=== PATIENT | male | born 1995 | race Caucasian/White ===

== ENCOUNTER 2017-07-04 17:02 | Emergency (ER) | payer OTHER ==
[~2017-07-04] VITALS: Ht 182.9 cm; Wt 161.9 kg
[2017-07-04 17:04] VITALS: TEMP 37; Ht 182.9 cm; Wt 161.9 kg
[2017-07-04] MEDS ORDERED: ONDANSETRON INJ 2 MG/ML 2 ML VIAL IV STA (17:36)
[2017-07-04] MEDS ORDERED: SODIUM CHLORIDE 0.9% 1000ML 1,000 ML IV STA (17:36)
--- NOTE | 2017-07-04 17:46 | EMERGENCY ROOM VISIT NOTE ---
History Report prepared by Hilary: Larry Moss Under the Supervision of: Dr. Bassam Spaulding M.D. First contact with patient: 17:09 Chief Complaint: GI ASSESSMENT Stated Complaint: VOMITING, DIARRHEA, FEVER, SORE THROAT, ABDOMINAL Nursing Triage Summary: Pt presents accompanied by mom. Pt states vomiting, diarrhea and upper abd pain x 4 days. Pt states on Clozaril, mom states, "He almost from being on that about 4 yrs ago because he had no immune system." History of Present Illness The patient is a 21 year old male who presents to the Emergency Room with complaints of on and off upper abdominal pain for the past four days. He currently rates his discomfort as a 3/10 in severity. Additionally, the patient has been having nausea, vomiting, diarrhea, fever of 100-101, sore throat, neck pain, and back pain. The patient is currently on Clozaril for the past 8 years, and at one point the patients immune system was too far down, and he almost . The mother has been sick recently, and she wants his levels checked. The patient additionally is complaining of weakness, photophobia, and phonophobia. The patient denies any hematochezia, urinary symptoms, swelling or bruising of the extremities, shortness of breath, cough, chest pain, headache, and testicular pain. The patient has a history of schizophrenia, tachycardia, high functioning autism, PTSD, Bipolar disorder, and he is diabetic. The patient denies any recent antibiotics, and he has had a fever today. Source of History: patient, parent Onset: four days ago Position: abdomen (upper) Symptom Intensity: 3/10 Timing: other (on and off) Associated Symptoms: + fevers, + sorethroat, + neck pain, + nausea, + vomiting, + abdominal pain, + back pain, + diarrhea, + weakness, No headache, No cough, No chest pain, No SOB, No hematochezia, No urinary symptoms Review of Systems See HPI for pertinent positives & negatives. A total of 10 systems reviewed and were otherwise negative. Past Medical & Surgical Medical Problems: (1) Bipolar disorder (2) Diabetes (3) High-functioning autism spectrum disorder (4) PTSD (post-traumatic stress disorder) (5) Schizophrenia (6) Tachycardia Old medical records were reviewed. Nurse's notes were reviewed and I agree with. Social History Smoking Status: Never Smoker Marital Status: single Housing Status: lives with family Occupation Status: student Current/Historical Medications Scheduled Ascorbic Acid (Vitamin C), 500 MG PO BID Atenolol (Tenormin), 25 MG PO DAILY Clozapine (Clozaril), 100 MG PO DAILY Fenofibrate (Tricor), 160 MG PO DAILY Fluoxetine (Prozac), 20 MG PO DAILY Lisinopril (Zestril), 2.5 MG PO DAILY Metformin Hcl (Glucophage), 500 MG PO BID Multiple Vitamins W/ Minerals (Centrum), 1 TAB PO DAILY Pantoprazole (Protonix), 40 MG PO DAILY Probiotic Product (Probiotic), 1 TAB PO DAILY Simvastatin (Zocor), 40 MG PO QPM Zinc Gluconate (Zinc), 50 MG PO DAILY Scheduled PRN Alprazolam (Xanax), 0.5 MG PO BID PRN for Anxiety Zolpidem Tartrate (Ambien), 10 MG PO HS PRN for Sleep Physical Exam Vital Signs Date Time Temp Pulse Resp B/P (MAP) Pulse Ox O2 Delivery O2 Flow Rate FiO2 07/04/17 20:06 84 20 135/85 96 Room Air 07/04/17 19:10 93 16 128/74 95 Room Air 07/04/17 17:04 37.0 111 18 150/67 94 Room Air Physical Exam General: Non-ill appearing young male in no acute distress. HEENT: Normal cephalic atraumatic. Tympanic membranes are normal. Pupils are equal round and reactive to light. Extraocular movements are intact. Oropharynx is pink with moist mucous membranes. Tonsil and uvula have been surgically removed. No swelling of the mouth lips or tongue. Neck: Supple with a midline trachea. No meningeal signs or stiffness, no JVD or bruits. Negative Kernig and Brudzinski. No Stridor. Chest: Clear to auscultation bilaterally. No wheezes or rhonchi. No increased work of breathing. Heart: regular rate and rhythm. Abdomen: Soft nontender, nondistended without rebound guarding or rigidity. Extremities: No cyanosis clubbing or edema. No calf tenderness or assymetry Spine/Back. Non tender to palpation. No CVA tenderness Skin: Good turgor without rashes. Neurologic exam: Cranial nerves two through 12 are intact. Motor and sensation are intact and symmetrical throughout. Psych: Normal thought process and affect Medical Decision & Procedures ER Provider Diagnostic Interpretation: Radiology results as stated below per my review and radiologist interpretation: CHEST ONE VIEW PORTABLE CLINICAL HISTORY: Atypical chest pain COMPARISON STUDY: No previous studies for comparison. FINDINGS: The cardiac and mediastinal contours are normal. There is no evidence of focal pulmonary consolidation. There is no evidence of failure. No pleural effusions are visualized.[ There is a small device projected over the left chest, likely representing an event recorder. IMPRESSION: No active disease in the chest. Electronically signed by: Yovani Morales M.D. 07/04/2017 5:54 PM Dictated Date/Time: 07/04/2017 5:52 PM ABD/PELVIS IV CONTRAST ONLY CT DOSE: 1975.92 mGy.cm HISTORY: Pain eval for infection/colitis TECHNIQUE: Multiaxial CT images of the abdomen and pelvis were performed following the use of intravenous contrast. A dose lowering technique was utilized adhering to the principles of ALARA. COMPARISON STUDY: None. FINDINGS: Lung bases are clear. Fatty infiltration of liver. The kidneys enhance uniformly. 3 mm nonobstructing calcification lower pole left kidney. Nonobstructive bowel pattern. Negative visualized components of the appendix. IMPRESSION: 1. Fatty infiltration of liver. 2. Otherwise negative study. The above report was generated using voice recognition software. It may contain grammatical, syntax or spelling errors. Electronically signed by: Ken Timmons M.D. 07/04/2017 7:40 PM Dictated Date/Time: 07/04/2017 7:38 PM Laboratory Results 07/04/17 17:50 Red Blood Count 4.73, Mean Corpuscular Volume 87.3, Mean Corpuscular Hemoglobin 29.4, Mean Corpuscular Hemoglobin Concent 33.7, Mean Platelet Volume 9.1, Neutrophils (%) (Auto) 57.7, Lymphocytes (%) (Auto) 26.6, Monocytes (%) (Auto) 12.6, Eosinophils (%) (Auto) 2.5, Basophils (%) (Auto) 0.2, Neutrophils # (Auto ) 4.88, Lymphocytes # (Auto) 2.25, Monocytes # (Auto) 1.07, Eosinophils # (Auto ) 0.21, Basophils # (Auto) 0.02 07/04/17 17:50 Test 07/04/17 17:44 12/5/17 17:50 07/04/17 18:03 07/04/17 18:52 Influenza Type A Antigen Neg for Influ A (NEG) Influenza Type B Antigen Neg for Influ B (NEG) White Blood Count 8.46 K/uL (4.8-10.8) Red Blood Count 4.73 M/uL (4.7-6.1) Hemoglobin 13.9 g/dL (14.0-18.0) Hematocrit 41.3 % (42-52) Mean Corpuscular Volume 87.3 fL (80-100) Mean Corpuscular Hemoglobin 29.4 pg (25-34) Mean Corpuscular Hemoglobin Concent 33.7 g/dl (32-36) Platelet Count 326 K/uL (130-400) Mean Platelet Volume 9.1 fL (7.4-10.4) Neutrophils (%) (Auto) 57.7 % Lymphocytes (%) (Auto) 26.6 % Monocytes (%) (Auto) 12.6 % Eosinophils (%) (Auto) 2.5 % Basophils (%) (Auto) 0.2 % Neutrophils # (Auto) 4.88 K/uL (1.4-6.5) Lymphocytes # (Auto) 2.25 K/uL (1.2-3.4) Monocytes # (Auto) 1.07 K/uL (0.11-0.59) Eosinophils # (Auto) 0.21 K/uL (0-0.5) Basophils # (Auto) 0.02 K/uL (0-0.2) RDW Standard Deviation 46.0 fL (36.4-46.3) RDW Coefficient of Variation 14.3 % (11.5-14.5) Immature Granulocyte % (Auto) 0.4 % Immature Granulocyte # (Auto) 0.03 K/uL (0.00-0.02) Anion Gap 6.0 mmol/L (3-11) Est Creatinine Clear Calc Drug Dose 194.5 ml/min Estimated GFR () 133.6 Estimated GFR (Non- 115.3 BUN/Creatinine Ratio 11.3 (10-20) Calcium Level 8.7 mg/dl (8.5-10.1) Total Bilirubin 0.5 mg/dl (0.2-1) Direct Bilirubin 0.1 mg/dl (0-0.2) Aspartate Amino Transf (AST/SGOT) 34 U/L (15-37) Alanine Aminotransferase (ALT/SGPT) 42 U/L (12-78) Alkaline Phosphatase 35 U/L (45-117) Total Protein 7.4 gm/dl (6.4-8.2) Albumin 3.9 gm/dl (3.4-5.0) Lipase 77 U/L (73-393) Monoscreen NEG (NEG) Bedside Lactic Acid Venous 2.09 mmol/L (0.90-1.70) Urine Color DK YELLOW Urine Appearance CLEAR (CLEAR) Urine pH 5.5 (4.5-7.5) Urine Specific [place] 1.029 (1.000-1.030) Urine Protein NEG (NEG) Urine Glucose (UA) NEG (NEG) Urine Ketones TRACE (NEG) Urine Occult Blood NEG (NEG) Urine Nitrite NEG (NEG) Urine Bilirubin NEG (NEG) Urine Urobilinogen NEG (NEG) Urine Leukocyte Esterase TRACE (NEG) Urine WBC (Auto) 1-5 /hpf (0-5) Urine RBC (Auto) 0-4 /hpf (0-4) Urine Hyaline Casts (Auto) 5-10 /lpf (0-5) Urine Epithelial Cells (Auto) 20-30 /lpf (0-5) Urine Bacteria (Auto) NEG (NEG) Laboratory studies as stated above per my review. Medications Administered Medications (Trade) Dose Ordered Sig/Jacquie Route Start Time Stop Time Status Last Admin Dose Admin Sodium Chloride 1,000 ml @ 999 mls/hr Q1H1M STAT IV 07/04/17 17:36 07/04/17 18:36 DC 07/04/17 17:59 999 MLS/HR Ondansetron HCl (Zofran Inj) 4 mg NOW STAT IV 07/04/17 17:36 07/04/17 17:39 DC 07/04/17 17:59 4 MG Ondansetron HCl (ZOFRAN ODT 4MG Home Pack) 1 homepack UD ONCE PO 07/04/17 20:00 07/04/17 20:01 DC 07/04/17 20:05 1 HOMEPACK ED Course 1709: The patient was evaluated by the medical student. 1729: Past medical records reviewed. The patient was evaluated in room B12, and a complete history and physical examination were performed. 1735: Zofran 4mg IV, Sodium Chloride 1000 ml @ 999 mls/hr IV 1846: I reevaluated the patient, and he is going to get a CT scan. 1954: Upon reevaluation, the patient is resting comfortably. I discussed the results and treatment plan with him and his mother. They verbalized agreement of the treatment plan. The patient was discharged home. 1999: Zofran ODT 4mg Home Pack PO Medical Decision Differentials include, but are not limited to; viral illness, dehydration sepsis , medication side effect, electrolyte or metabolic abnormality. This patient comes in as described above. He was placed in room B12. He has had flulike symptoms for about 4 days he's had nausea vomiting diarrhea as well as achiness intermittent fever. Mother is concerned is could be from his Clozaril and he has had low white counts related to this the past. He looks well on exam and is nontoxic. He has nothing to suggest meningitis or sepsis. He is afebrile upon arrival. IV access established was given 1 L IV normal saline bolus and was given Zofran 4 mg IV for nausea. A full sepsis workup was obtained which included chest x-ray, urinalysis and culture, blood cultures, lactic acid, and multiple other additional blood testing. Mother has requested that we get a Clozaril level and I informed her that was a send out lab it would not come back tonight and take several days to return.. The white count is not elevated to suggest sepsis. Additionally, it is not low to suggest an effect from Clozaril. He has no acute electrolyte or metabolic abnormalities. Strep was negative. Monospot was negative. His tonsils have been previously removed. His blood work does not suggest liver, gallbladder, or pancreas disease. I did do a CAT scan with IV contrast after discussing this with the mother and the patient. He has nothing to suggest UTI with a culture pending blood cultures are pending. Lactic acid is minimally elevated at just over 2 and again, I do not think he is likely septic at this point. He did receive a liter of IV fluid while he was here. CAT scan the abdomen was unremarkable. Urinalysis does not suggest UTI. I think this is more likely a viral GI illness. He was given a home pack of Zofran. He is to rest and drink plenty fluids return if: Worsening of symptoms, fever or chills, increasing pain, any new problems or concerns. Medication Reconcilliation Current Medication List: was personally reviewed by me Blood Pressure Screening Patient's blood pressure: Elevated blood pressure Blood pressure disposition: Elevated BP felt to be situational Impression Primary Impression: Nausea vomiting and diarrhea Additional Impressions: Viral illness Diffuse abdominal pain Abdominal bloating Scribe Attestation The scribe's documentation has been prepared under my direction and personally reviewed by me in its entirety. I confirm that the note above accurately reflects all work, treatment, procedures, and medical decision making performed by me. Departure Information Dispostion Home / Self-Care Referrals Matt Gutierres D.O. (PCP) Forms HOME CARE DOCUMENTATION FORM, IMPORTANT VISIT INFORMATION Patient Instructions My [facility] Additional Instructions Rest. Drink plenty of fluids. Mild diet. Slowly advance. Return if: Worsening of symptoms, not tolerating fluids, any new problems or concerns. May use Zofran 4 mg every 6 hours as needed for nausea or vomiting Follow-up with the [facility] or your doctor in the next 1-2 days if not better or return here at any point if symptoms worsen Problem Qualifiers
--- NOTE | 2017-07-04 17:56 | DIAGNOSTIC IMAGING REPORT ---
CHEST ONE VIEW PORTABLE CLINICAL HISTORY: Atypical chest pain COMPARISON STUDY: No previous studies for comparison. FINDINGS: The cardiac and mediastinal contours are normal. There is no evidence of focal pulmonary consolidation. There is no evidence of failure. No pleural effusions are visualized.[ There is a small device projected over the left chest, likely representing an event recorder. IMPRESSION: No active disease in the chest. Electronically signed by: Yovani Morales M.D. 07/04/2017 5:54 PM Dictated Date/Time: 07/04/2017 5:52 PM
[2017-07-04] MEDS ORDERED: PANT40TA PO (18:04)
[2017-07-04] MEDS ORDERED: LISI-789 PO (18:04)
[2017-07-04] MEDS ORDERED: ASCO500C5 PO (18:04)
[2017-07-04] MEDS ORDERED: CLOZ100T PO (18:04)
[2017-07-04] MEDS ORDERED: ALPR-411 PO (18:04)
[2017-07-04] MEDS ORDERED: FENO1TAB PO (18:04)
[2017-07-04] MEDS ORDERED: ATEN-173 PO (18:04)
[2017-07-04] MEDS ORDERED: FLUO20CA35 PO (18:04)
[2017-07-04] MEDS ORDERED: GLC/500 PO (18:04)
[2017-07-04] MEDS ORDERED: PROB1TAB16 PO (18:04)
[2017-07-04] MEDS ORDERED: ZINC1TAB PO (18:04)
[2017-07-04] MEDS ORDERED: SIMV40TA4 PO (18:04)
[2017-07-04] MEDS ORDERED: MULTTAB5 PO (18:04)
[2017-07-04] MEDS ORDERED: ZOLP10TA PO (18:04)
[2017-07-04 18:17] LABS: BASO % 0.2 %; BASO ABS # 0.02 K/uL (0-0.2); COMPLETE YES; EOS % 2.5 %; HEMATOCRIT 41.3 % (42-52); IG% 0.4 %; LYMPH % 26.6 %; LYMPH ABS # 2.25 K/uL (1.2-3.4); MEAN CELL VOLUME 87.3 fL (80-100); MEAN CORPUSCULAR HEMOGLOBIN 29.4 pg (25-34); MEAN CORPUSCULAR HGB CONC 33.7 g/dl (32-36); MEAN PLATELET VOLUME 9.1 fL (7.4-10.4); MONO % 12.6 %; NEUT % 57.7 %; PLATELET COUNT 326 K/uL (130-400); RED BLOOD COUNT 4.73 M/uL (4.7-6.1); WHITE BLOOD COUNT 8.46 K/uL (4.8-10.8)
[2017-07-04 18:33] LABS: BUN/CREATININE RATIO 11.3 (10-20); CALCIUM 8.7 mg/dl (8.5-10.1); CREATININE 0.93 mg/dl (0.60-1.40); POTASSIUM 3.6 mmol/L (3.5-5.1)
[2017-07-04] MEDS ORDERED: OPTIRAY 320 IV PRN (19:00)
[2017-07-04 19:21] LABS: URINE APPEARANCE CLEAR (CLEAR); URINE COLOR DK YELLOW; URINE EPITHELIAL CELL AUTO 20-30 /lpf (0-5); URINE NITRITE NEG (NEG); URINE PH 5.5 (4.5-7.5); URINE SPECIFIC GRAVITY 1.029 (1.000-1.030); UROBILINOGEN NEG (NEG)
[2017-07-04 19:32] LABS: MANUAL MICROSCOPIC REQUIRED? NO; REVIEW REQ? NO; URINE BILIRUBIN NEG (NEG)
--- NOTE | 2017-07-04 19:42 | DIAGNOSTIC IMAGING REPORT ---
ABD/PELVIS IV CONTRAST ONLY CT DOSE: 1975.92 mGy.cm HISTORY: Pain eval for infection/colitis TECHNIQUE: Multiaxial CT images of the abdomen and pelvis were performed following the use of intravenous contrast. A dose lowering technique was utilized adhering to the principles of ALARA. COMPARISON STUDY: None. FINDINGS: Lung bases are clear. Fatty infiltration of liver. The kidneys enhance uniformly. 3 mm nonobstructing calcification lower pole left kidney. Nonobstructive bowel pattern. Negative visualized components of the appendix. IMPRESSION: 1. Fatty infiltration of liver. 2. Otherwise negative study. The above report was generated using voice recognition software. It may contain grammatical, syntax or spelling errors. Electronically signed by: Ken Timmons M.D. 07/04/2017 7:40 PM Dictated Date/Time: 07/04/2017 7:38 PM
[2017-07-04] MEDS ORDERED: ONDANSETRON HOME PACK 4MG OD TAB PO ONE (20:00)
[2017-07-04 20:06] VITALS: BP 135/85; PULSE 84; O2SAT 96
[2017-07-07 19:34] LABS: NORCLOZAPINE 72 mcg/L (25-400)
== END 2017-07-04 20:09 | disposition home or self-care (01) ==
LOC: C.EDB 17:03
DX: R11.2 Nausea with vomiting, unspecified (principal); R19.7 Diarrhea, unspecified; B34.9 Viral infection, unspecified; R10.10 Upper abdominal pain, unspecified; R14.0 Abdominal distension (gaseous); E11.9 Type 2 diabetes mellitus without complications; R03.0 Elevated blood-pressure reading, without diagnosis of hypertension

== ENCOUNTER 2017-08-16 22:54 | Emergency (ER) | payer OTHER ==
[~2017-08-16] VITALS: Ht 182.9 cm; Wt 163.0 kg
[~2017-08-16 22:54] MED LIST: ALPR-411 PO; ASCO500C5 PO; ATEN-173 PO; CLOZ100T PO; FENO1TAB PO; FLUO20CA35 PO; GLC/500 PO; LISI-789 PO; MULTTAB5 PO; PANT40TA PO; PROB1TAB16 PO; SIMV40TA4 PO; ZINC1TAB PO; ZOLP10TA PO
[2017-08-16 22:58] VITALS: TEMP 36.6; Ht 182.9 cm; Wt 163.0 kg
[2017-08-16] MEDS ORDERED: ONDANSETRON INJ 2 MG/ML 2 ML VIAL IV STA (23:06)
[2017-08-16] MEDS ORDERED: SODIUM CHLORIDE 0.9% 1000ML 1,000 ML IV STA (23:06)
[2017-08-16 23:33] LABS: ALBUMIN 4.7 gm/dl (3.4-5.0); ALT/SGPT 53 U/L (12-78); BLOOD UREA NITROGEN 19 mg/dl (7-18); CALCIUM 9.6 mg/dl (8.5-10.1); CARBON DIOXIDE 21 mmol/L (21-32); CREATININE 1.21 mg/dl (0.60-1.40); GLUCOSE 182 mg/dl (70-99); LIPASE 79 U/L (73-393); POTASSIUM 3.6 mmol/L (3.5-5.1); SODIUM 138 mmol/L (136-145)
[2017-08-16 23:36] LABS: ALKALINE PHOSPHATASE 37 U/L (45-117); AST/SGOT 29 U/L (15-37); TOTAL PROTEIN 8.2 gm/dl (6.4-8.2)
[2017-08-16 23:51] LABS: BASO % 0.4 %; BASO ABS # 0.11 K/uL (0-0.2); EOS % 0.9 %; EOS ABS # 0.25 K/uL (0-0.5); HEMATOCRIT 45.8 % (42-52); HEMOGLOBIN 15.4 g/dL (14.0-18.0); IG# 0.19 K/uL (0.00-0.02); LYMPH % 14.2 %; LYMPH ABS # 3.89 K/uL (1.2-3.4); MEAN CELL VOLUME 87.6 fL (80-100); MEAN CORPUSCULAR HEMOGLOBIN 29.4 pg (25-34); MEAN CORPUSCULAR HGB CONC 33.6 g/dl (32-36); MONO % 5.1 %; NEUT % 78.7 %; NEUT ABS # 21.53 K/uL (1.4-6.5); PLATELET COUNT 337 K/uL (130-400); RED CELL DISTRIBUTION WIDTH CV 14.6 % (11.5-14.5); RED CELL DISTRIBUTION WIDTH SD 46.6 fL (36.4-46.3); WHITE BLOOD COUNT 27.37 K/uL (4.8-10.8)
[2017-08-17] MEDS ORDERED: ONDANSETRON INJ 2 MG/ML 2 ML VIAL IV STA (00:29)
[2017-08-17] MEDS ORDERED: OPTIRAY 320 IV PRN (00:30)
[2017-08-17] MEDS ORDERED: NURSING VERBAL MED ORDER ONE (00:45)
[2017-08-17] MEDS ORDERED: PROCHLORPERAZINE 5 MG/ML 2 ML VIAL IV STA (01:17)
[2017-08-17 01:21] VITALS: PULSE 94; O2SAT 95
[2017-08-17] MEDS ORDERED: ONDA4TAB10 SL (01:24)
--- NOTE | 2017-08-17 01:27 | EMERGENCY ROOM VISIT NOTE ---
History Report prepared by Hilary: China Haas Under the Supervision of: Dr. Tate Ortiz D.O. First contact with patient: 23:06 Chief Complaint: VOMITING Stated Complaint: NAUSEA, VOMITING Nursing Triage Summary: One hour onset nausea, vomiting, chills, headache, epigastric burning. History of Present Illness The patient is a 22 year old male who presents to the Emergency Room with complaints of persistent vomiting starting 2 hours ago. The patient reports upper abdominal pain, nausea, headache, chills, and diaphoresis. He had a small amount of blood in his vomit. He has not had any sick contacts. His mother notes that he has had similar episodes of vomiting in the past. She feels this vomiting might occur when he eats steak for dinner. He has a history of diabetes and is on metformin. Source of History: patient, parent Onset: 2 hours ago Position: other (global) Quality: other (vomiting) Timing: other (persistent) Associated Symptoms: + chills, + headache, + diaphoresis, + nausea, + abdominal pain Note: Pt reports hematemesis. Review of Systems See HPI for pertinent positives & negatives. A total of 10 systems reviewed and were otherwise negative. Past Medical & Surgical Medical Problems: (1) Bipolar disorder (2) Diabetes (3) High-functioning autism spectrum disorder (4) PTSD (post-traumatic stress disorder) (5) Schizophrenia (6) Tachycardia Family History Cancer Diabetes mellitus Heart disease Hypertension Social History Smoking Status: Never Smoker Marital Status: single Housing Status: lives with family Occupation Status: student Current/Historical Medications Scheduled Ascorbic Acid (Vitamin C), 500 MG PO BID Atenolol (Tenormin), 25 MG PO DAILY Clozapine (Clozaril), 100 MG PO DAILY Fenofibrate (Tricor), 160 MG PO DAILY Fluoxetine (Prozac), 20 MG PO DAILY Lisinopril (Zestril), 2.5 MG PO DAILY Metformin Hcl (Glucophage), 500 MG PO BID Multiple Vitamins W/ Minerals (Centrum), 1 TAB PO DAILY Pantoprazole (Protonix), 40 MG PO DAILY Probiotic Product (Probiotic), 1 TAB PO DAILY Simvastatin (Zocor), 40 MG PO QPM Zinc Gluconate (Zinc), 50 MG PO DAILY Scheduled PRN Alprazolam (Xanax), 0.5 MG PO BID PRN for Anxiety Zolpidem Tartrate (Ambien), 10 MG PO HS PRN for Sleep Allergies Coded Allergies: No Known Allergies (Unverified , 08/16/17) Physical Exam Vital Signs Date Time Temp Pulse Resp B/P (MAP) Pulse Ox O2 Delivery O2 Flow Rate FiO2 08/17/17 01:01 123/63 08/17/17 00:50 98 22 97 Room Air 08/17/17 00:35 102 25 95 08/17/17 00:30 127/79 08/17/17 00:20 105 23 92 08/17/17 00:15 125/87 08/16/17 23:34 91 94 08/16/17 23:24 96 15 94 08/16/17 23:14 94 20 95 08/16/17 23:04 99 21 94 Room Air 08/16/17 23:02 94 08/16/17 23:00 138/87 08/16/17 22:58 36.6 95 18 138/87 95 Room Air Physical Exam CONSTITUTIONAL/VITAL SIGNS: Reviewed / noted above. GENERAL: Non-toxic in appearance. INTEGUMENTARY: Warm, diaphoretic, and [place]. HEAD: Normocephalic. EYES: without scleral icterus or trauma. ENT/OROPHARYNX: clear and moist. LYMPHADENOPATHY/NECK: Is supple without lymphadenopathy or meningismus. RESPIRATORY: Lungs clear and equal. CARDIOVASCULAR: Regular rate and rhythm. GI/ABDOMEN: Soft and nontender. No organomegaly or pulsatile mass. No rebound or guarding. Normal bowel sounds. EXTREMITIES: Warm and well perfused. BACK: No CVA tenderness. NEUROLOGICAL: Intact without focal deficits. PSYCHIATRIC: normal affect. MUSCULOSKELETAL: Normally developed with good muscle tone. Medical Decision & Procedures ER Provider Diagnostic Interpretation: X ray results stated below per my interpretation: Chest X-ray: No acute disease. No pneumonia. No pneumothorax. Radiology results as stated below per my review and [facility] radiologist interpretation: US RUQ: Pancreas is obscured. Large fatty liver. No gallstones or biliary ductal dilatation. Possibly gallbladder sludge. CT Abdomen & Pelvis with contrast: Minimal pneumonitis in the left lung base. No evidence of appendicitis or bowel obstruction. Large fatty liver. Nonobstructing left renal stone. Laboratory Results 08/16/17 23:00 Red Blood Count 5.23, Mean Corpuscular Volume 87.6, Mean Corpuscular Hemoglobin 29.4, Mean Corpuscular Hemoglobin Concent 33.6, Mean Platelet Volume 9.0, Neutrophils (%) (Auto) 78.7, Lymphocytes (%) (Auto) 14.2, Monocytes (%) (Auto) 5.1, Eosinophils (%) (Auto) 0.9, Basophils (%) (Auto) 0.4, Neutrophils # (Auto) 21.53, Lymphocytes # (Auto) 3.89, Monocytes # (Auto) 1.40, Eosinophils # (Auto) 0.25, Basophils # (Auto) 0.11 08/16/17 23:00 Test 08/16/17 00:15 08/16/17 23:00 08/16/17 23:20 Urine Color DK YELLOW Urine Appearance CLOUDY (CLEAR) Urine pH 5.0 (4.5-7.5) Urine Specific [place] 1.030 (1.000-1.030) Urine Protein 1+ (NEG) Urine Glucose (UA) NEG (NEG) Urine Ketones TRACE (NEG) Urine Occult Blood NEG (NEG) Urine Nitrite NEG (NEG) Urine Bilirubin NEG (NEG) Urine Urobilinogen NEG (NEG) Urine Leukocyte Esterase NEG (NEG) Urine WBC (Auto) 1-5 /hpf (0-5) Urine RBC (Auto) 5-10 /hpf (0-4) Urine Hyaline Casts (Auto) 10-30 /lpf (0-5) Urine Epithelial Cells (Auto) >30 /lpf (0-5) Urine Bacteria (Auto) NEG (NEG) Urine Pathogenic Casts /lpf (0) White Blood Count 27.37 K/uL (4.8-10.8) Red Blood Count 5.23 M/uL (4.7-6.1) Hemoglobin 15.4 g/dL (14.0-18.0) Hematocrit 45.8 % (42-52) Mean Corpuscular Volume 87.6 fL (80-100) Mean Corpuscular Hemoglobin 29.4 pg (25-34) Mean Corpuscular Hemoglobin Concent 33.6 g/dl (32-36) Platelet Count 337 K/uL (130-400) Mean Platelet Volume 9.0 fL (7.4-10.4) Neutrophils (%) (Auto) 78.7 % Lymphocytes (%) (Auto) 14.2 % Monocytes (%) (Auto) 5.1 % Eosinophils (%) (Auto) 0.9 % Basophils (%) (Auto) 0.4 % Neutrophils # (Auto) 21.53 K/uL (1.4-6.5) Lymphocytes # (Auto) 3.89 K/uL (1.2-3.4) Monocytes # (Auto) 1.40 K/uL (0.11-0.59) Eosinophils # (Auto) 0.25 K/uL (0-0.5) Basophils # (Auto) 0.11 K/uL (0-0.2) RDW Standard Deviation 46.6 fL (36.4-46.3) RDW Coefficient of Variation 14.6 % (11.5-14.5) Immature Granulocyte % (Auto) 0.7 % Immature Granulocyte # (Auto) 0.19 K/uL (0.00-0.02) Platelet Estimate NORMAL Anion Gap 15.0 mmol/L (3-11) Est Creatinine Clear Calc Drug Dose 148.8 ml/min Estimated GFR () 96.5 Estimated GFR (Non- 83.3 BUN/Creatinine Ratio 15.8 (10-20) Calcium Level 9.6 mg/dl (8.5-10.1) Total Bilirubin 0.4 mg/dl (0.2-1) Direct Bilirubin < 0.1 mg/dl (0-0.2) Aspartate Amino Transf (AST/SGOT) 29 U/L (15-37) Alanine Aminotransferase (ALT/SGPT) 53 U/L (12-78) Alkaline Phosphatase 37 U/L (45-117) Total Protein 8.2 gm/dl (6.4-8.2) Albumin 4.7 gm/dl (3.4-5.0) Lipase 79 U/L (73-393) Bedside Glucose 176 mg/dl (70-99) Laboratory results as stated above per my review. Medications Administered Medications (Trade) Dose Ordered Sig/Jacquie Route Start Time Stop Time Status Last Admin Dose Admin Sodium Chloride 1,000 ml @ 999 mls/hr Q1H1M STAT IV 08/16/17 23:06 08/17/17 00:06 DC 08/16/17 23:25 999 MLS/HR Ondansetron HCl (Zofran Inj) 4 mg NOW STAT IV 08/16/17 23:06 08/16/17 23:09 DC 08/16/17 23:28 4 MG Ondansetron HCl (Zofran Inj) 4 mg NOW STAT IV 08/17/17 00:29 08/17/17 00:30 DC 08/17/17 00:32 4 MG ECG Indication: diaphoresis Rate (beats per minute): 86 Rhythm: normal sinus Findings: no ectopy, other (no acute injury) Change: Patient's electrocardiogram interpreted by me. ED Course 2306: Zofran Inj 4 mg IV, NSS 1000 ml @ 999 mls/hr IV. 2311: Previous medical records were reviewed. The patient was evaluated in room B4B. A complete history and physical examination was performed. 0029: Zofran Inj 4 mg IV. 0109: On reevaluation, the patient is feeling better. I discussed the results and findings with the patient and his mother. They verbalized agreement of the treatment plan. He was discharged home. 0117: Compazine Inj 10 mg IV. 0130: Zofran 1 homepack PO. Medical Decision Differential diagnosis: Etiologies such as gastroenteritis, food borne illness, infections, appendicitis , diverticulitis, inflammatory bowel disease, obstruction, GI bleed, biliary pathology, as well as others were entertained. This is a 22-year-old male who presents to the ED with a chief complaint of nausea and vomiting. The patient symptoms started at 9 PM tonight. The patient states that his symptoms started about 2 hours after eating steak. The patient reports some upper abdominal pain as well. His physical exam was unremarkable. He was nontender on exam. The mother reports that he is also had diarrhea. Laboratory studies reveal a complete metabolic panel was unremarkable. The BUN was 19 and the glucose was 182. Lipase is negative. A chest x-ray did not show acute disease. The patient's white blood cell count was elevated at 27,000. Urine revealed some trace ketones. Ultrasound revealed some possible sludge in the gallbladder with a fatty liver. CT scan of the abdomen and pelvis did not show any acute process. They suggested a possible left-sided pneumonia. Clinically the patient does not have any complaints to this regard. I spoke with the patient after treatment here. He was feeling much better. He received 2 doses of Zofran, IV fluids and some IV Compazine. The patient felt comfortable going home. I did talk to them about the high white blood cell count. The mother reports that he was vomiting heavily and this could just be a stress-related leukocytosis. The abdominal CT scan did not show any significant acute process. The symptoms started only a few hours prior to arrival. They were warned that if symptoms worsen, he develops fevers or other concerning symptoms to return for reevaluation. The patient was discharged with Zofran prescription and given some Zofran to go. They were advised to follow-up with PCP for recheck later this week. Medication Reconcilliation Current Medication List: was personally reviewed by me Blood Pressure Screening Patient's blood pressure: Normal blood pressure Blood pressure disposition: Did not require urgent referral Impression Primary Impression: Vomiting Additional Impressions: Leukocytosis Hyperglycemia Scribe Attestation The scribe's documentation has been prepared under my direction and personally reviewed by me in its entirety. I confirm that the note above accurately reflects all work, treatment, procedures, and medical decision making performed by me. Departure Information Dispostion Home / Self-Care Prescriptions Ondasetron Odt (ZOFRAN ODT) 4 Mg Tab 4 MG SL Q6H for Nausea, #30 TAB Prov: Tate Ortiz D.O. 08/17/17 Referrals Matt Gutierres D.O. (PCP) Patient Instructions My [facility] Additional Instructions Zofran: Allow one tablet to dissolve under the tongue every 6 hours as needed for nausea or vomiting. Your white blood cell count today was 27,000. This is high. This could be related to the recent vomiting episode and a stress related to that. The blood sugar was somewhat elevated as well at 182. This could be related to the stress of his illness tonight or possibly early diabetes. Talk to your doctor about this. Return for reevaluation should you develop worsening vomiting not controlled with Zofran, fevers or other concerns. Follow-up with your doctor in 1-2 days for recheck. Problem Qualifiers
[2017-08-17] MEDS ORDERED: ONDANSETRON HOME PACK 4MG OD TAB PO ONE (01:30)
[2017-08-17 01:31] VITALS: BP 116/57
--- NOTE | 2017-08-17 06:32 | DIAGNOSTIC IMAGING REPORT ---
CHEST ONE VIEW PORTABLE CLINICAL HISTORY: ABDOMINAL PAIN/GI pain. Nausea. COMPARISON STUDY: 07/04/2017 FINDINGS: The bones soft tissues and hemidiaphragms are normal. The cardiomediastinal silhouette is normal. The lungs are clear. The pulmonary vasculature is normal. IMPRESSION: Negative chest. The above report was generated using voice recognition software. It may contain grammatical, syntax or spelling errors. Electronically signed by: Ken Timmons M.D. 08/17/2017 6:31 AM Dictated Date/Time: 08/17/2017 6:31 AM
--- NOTE | 2017-08-17 06:42 | DIAGNOSTIC IMAGING REPORT ---
GALLBLADDER-ABD LIMITED CLINICAL HISTORY: vomiting nausea TECHNIQUE: Ultrasound COMPARISON STUDY: None FINDINGS: Trace gallbladder sludge. No shadowing gallstones. Common bile duct 4 mm. Fatty infiltration of liver. Pancreas poorly seen due to overlying bowel content. Right kidney negative for hydronephrosis. IMPRESSION: 1. Small mild gallbladder sludge. 2. Normal caliber bile ducts. 3. Fatty infiltration of liver. The above report was generated using voice recognition software. It may contain grammatical, syntax or spelling errors. Electronically signed by: Ken Timmons M.D. 08/17/2017 6:41 AM Dictated Date/Time: 08/17/2017 6:40 AM
--- NOTE | 2017-08-17 06:55 | DIAGNOSTIC IMAGING REPORT ---
ABDOMEN AND PELVIS CT WITH IV CONTRAST CT DOSE: 2314.65 mGy.cm HISTORY: Acute vomiting with upper abdominal pain vomiting, upper abd pain TECHNIQUE: Multiaxial CT images of the abdomen and pelvis were performed following the use of intravenous contrast. A dose lowering technique was utilized adhering to the principles of ALARA. COMPARISON STUDY: Right upper quadrant ultrasound 08/16/2017, CT abdomen and pelvis 07/04/2017 FINDINGS: Loop recorder device is noted overlying the left chest wall. The imaged right lung base is clear. There are scattered bronchovascular distribution of groundglass opacities within the basal left lower lobe with likely infectious or inflammatory 3 mm solid nodule seen on image 59 series 3. Probable perifissural lymph node measures 2 mm adjacent to the major fissure on image 65 series 3. No pneumatosis or pneumoperitoneum. Imaged inferior cardiac chambers are unremarkable. Hepatomegaly with hepatic steatosis. No intrahepatic biliary ductal dilation. The spleen, pancreas, adrenal glands and gallbladder are within normal limits. 6 mm nonobstructing calculus present within the inferior pole left kidney. No ureteral calculi or obstructive uropathy. The right kidney, ureters and urinary bladder are within normal limits. Aorta is normal in course and caliber. No bulky adenopathy. There is no bowel obstruction or focal bowel wall thickening. Appendix appears normal. Soft tissues are unremarkable. Mild diastases recti. Bones appear intact. Minimal endplate degenerative changes throughout the thoracolumbar spine. IMPRESSION: 1. Scattered bronchovascular distribution of groundglass opacities involving the basal left lower lobe suggest infectious or inflammatory pneumonitis. 2. No acute intra-abdominal or intrapelvic abnormality identified. Normal appendix. 3. 6 mm nonobstructing calculus of the inferior pole left kidney. 4. Hepatomegaly with hepatic steatosis. Electronically signed by: Perry Michel M.D. 08/17/2017 6:53 AM Dictated Date/Time: 08/17/2017 6:48 AM
== END 2017-08-17 01:36 | disposition home or self-care (01) ==
LOC: EDBD 22:54 → C.EDB 22:57
DX: R11.10 Vomiting, unspecified (principal); D72.829 Elevated white blood cell count, unspecified; E11.65 Type 2 diabetes mellitus with hyperglycemia; F31.9 Bipolar disorder, unspecified; F20.9 Schizophrenia, unspecified; F84.0 Autistic disorder; Z79.84 Long term (current) use of oral hypoglycemic drugs; Z79.899 Other long term (current) drug therapy; Z80.9 Family history of malignant neoplasm, unspecified; Z83.3 Family history of diabetes mellitus; Z82.49 Family history of ischemic heart disease and other diseases of the circulatory system